=== PATIENT | male | born 1975 | race Caucasian/White ===

== ENCOUNTER 2016-10-31 08:14 | Inpatient (IN) ==
[2016-10-31 08:35] LABS: ALLEN TEST NO; BLOOD TYPE ARTERIAL; DRAW SITE R BRACHIAL; METHB 0.5 % (0.0-1.5); O2(CT) 19.6 mL/dL (15.0-23.0); PO2(98.6) 132 mmHg (60-100); SAMPLE BLOOD; SAO2 98.4 % (95.0-100.0); THB 14.8 g/dL (11.5-17.4)
[2016-10-31 08:37] LABS: pH(98.6) < 6.80 (7.35-7.45)
[2016-10-31 08:38] LABS: MODALITY RESUSC BAG; PCO2(98.6) 106 mmHg (35-45)
[2016-10-31] MEDS: LEVOPHED 8 MG in D5 1/2 NS 250 ML IV SCH ×3 (09:01→21:11)
[2016-10-31 09:11] LABS: BASO% 1.7 % (0.0-0.8); EOS# 0.27 X1000 (0.0-0.7); EOS% 2.3 % (0.0-10.0); HEMATOCRIT 48.7 % (42.0-52.0); HEMOGLOBIN 15.1 g/dL (14.0-18.0); IMM GRAN# 0.83 X1000 (0.0-0.04); IMM GRAN% 7.2 % (0.0-0.5); LYMPH# 5.53 X1000 (1.2-3.4); LYMPH% 47.9 % (20.5-51.1); MCH 29.3 PG (27-31); MCV 94.6 FL (81-99); MONO# 1.12 X1000 (0.11-0.59); MONO% 9.7 % (1.7-9.3); MPV 10.5 FL (7.4-10.4); NEUT% 31.2 % (42.2-75.2); PLT 177 X1000 (130-400); RBC 5.15 XMIL (4.7-6.1)
[2016-10-31 09:18] LABS: INR 1.1; PROTIME 11.6 Seconds (9.2-11.7)
[2016-10-31 09:19] LABS: URINE CULTURE NEEDED? NO; URINE MICRO REVIEW NEEDED? NO; URINE SOURCE CATH
[2016-10-31 09:26] LABS: ALBUMIN 3.3 g/dL (3.5-5.0); CALCIUM 8.8 mg/dL (8.8-10.2); POTASSIUM 3.8 mmol/L (3.5-5.1); TOTAL BILIRUBIN 0.21 mg/dL (0.20-1.00); TOTAL PROTEIN 6.2 g/dL (6.3-8.3)
[2016-10-31 09:28] LABS: BILIRUBIN URINE NEGATIVE (NEGATIVE); BLOOD URINE TRACE (NEGATIVE); COLOR STRAW; GLUCOSE URINE NEGATIVE (NEGATIVE); LEUKOCYTES URINE NEGATIVE (NEGATIVE); NITRITE URINE NEGATIVE (NEGATIVE); PH URINE 5.5; PROTEIN URINE NEGATIVE (NEGATIVE); SP GRAVITY URINE 1.003; TURBIDITY URINE CLEAR (CLEAR); UROBILINOGEN URINE NORMAL (NORMAL)
[2016-10-31 09:29] LABS: UR EPITHELIAL CELLS <10 /HPF (<10); URINE BACTERIA NEGATIVE /HPF; URINE RBC <10 /HPF (<10); URINE WBC <10 /HPF (<10)
[2016-10-31 09:34] LABS: UR AMPHETAMINES QUAL NONE DETECTED (NONE DETECT); UR BARBITUATES QUAL NONE DETECTED (NONE DETECT); UR BENZODIAZEPIN QUAL NONE DETECTED (NONE DETECT); UR CANNABINOIDS QUAL NONE DETECTED (NONE DETECT); UR COCAINE QUAL NONE DETECTED (NONE DETECT); UR METHADONE QUAL NONE DETECTED (NONE DETECT); UR OPIATES QUAL PRESUMPTIVE POSITIVE (NONE DETECT); UR OXYCODONE QUAL PRESUMPTIVE POSITIVE (NONE DETECT); UR PCP QUAL NONE DETECTED (NONE DETECT)
[2016-10-31] MEDS ORDERED: NS 2,000 ML ONE (09:34)
[2016-10-31] MEDS ORDERED: NS 1,000 ML IV ONE ×6 (09:45→23:09)
[2016-10-31] MEDS ORDERED: DOPAMINE 800 MG/D5W 800 MG/500 ML IV.SOLN IV SCH (09:52)
[2016-10-31] MEDS ORDERED: EPINEPHRINE SYRINGE ONE ×2 (10:06→12:30)
[2016-10-31] MEDS ORDERED: SODIUM BICARBONATE 8.4% ONE ×2 (10:06→12:30)
[2016-10-31] MEDS ORDERED: CORDARONE 150 MG/D5W ONE (10:06)
--- NOTE | 2016-10-31 10:23 | Diag Imaging Result Document ---
PROCEDURE NAME: CHEST-PORTABLE - 10/31/2016 AP PORTABLE CHEST: TIME: 0927 hours. FINDINGS: There is an endotracheal tube with its tip at the thoracic inlet. There is an apparent NG tube coiled in the upper thoracic esophagus. The inspiration is suboptimal. The heart size appears slightly larger than on 12/21/2015. IMPRESSION: NG tube coiled in the upper thoracic esophagus. The findings were called to the Emergency Room at 0930 hours.
[2016-10-31 10:29] LABS: MANUAL DIFF NEEDED? NO
--- NOTE | 2016-10-31 10:44 | EKG Report ---
Test Performed on : 10/31/2016 08:20:04 AM Test Reason : ED. Not ordered in [place] Blood Pressure : / mmHG Vent. Rate : 134 BPM Atrial Rate : 134 BPM P-R Int : 140 ms QRS Dur : 162 ms QT Int : 306 ms P-R-T Axes : 027 108 029 degrees QTc Int : 456 ms Sinus tachycardia. Right bundle branch block Abnormal ECG No previous ECGs available Unconfirmed Result
[2016-10-31 11:36] LABS: BE -10.6 mmoll (-3.0-3.0); BLOOD TYPE ARTERIAL; DRAW SITE R BRACHIAL; METHB 1.2 % (0.0-1.5); O2(CT) 23.3 mL/dL (15.0-23.0); PO2(98.6) 135 mmHg (60-100); SAMPLE BLOOD; SAO2 100.1 % (95.0-100.0); SRATE 14 BPM; THB 17.1 g/dL (11.5-17.4); TVOL 550 mL
[2016-10-31] MEDS: NEO-SYNEPHRINE 50 MG in NS 250 ML IV SCH ×6 (11:37→22:39)
[2016-10-31 11:38] LABS: MODALITY VENTILATOR; pH(98.6) 7.13 (7.35-7.45)
[2016-10-31 11:39] LABS: PCO2(98.6) 59 mmHg (35-45)
[2016-10-31] MEDS ORDERED: TYLENOL PR PRN (12:22)
[2016-10-31] MEDS ORDERED: NS 500 ML IV PRN (12:22)
[2016-10-31] MEDS ORDERED: LACRI-LUBE OPH OINT BOTH EYES SCH (12:30)
[2016-10-31] MEDS ORDERED: PEPCID IV SCH (12:30)
[2016-10-31] MEDS ORDERED: SODIUM CHLORIDE 0.9% INJ SCH ×2 (12:30→14:00)
[2016-10-31] MEDS ORDERED: SODIUM PHOSPHATE 20 MMOL in NS 250 ML IV PRN (12:30)
[2016-10-31] MEDS ORDERED: MAGNESIUM SULFATE 2 GM in STERILE WATER INJ. 50 ML IV PRN (12:30)
[2016-10-31] MEDS ORDERED: SODIUM PHOSPHATE 10 MMOL in NS 250 ML IV PRN (12:30)
[2016-10-31] MEDS ORDERED: CORDARONE ONE (12:30)
[2016-10-31] MEDS ORDERED: ATIVAN IV SCH (12:30)
[2016-10-31] MEDS ORDERED: FENTANYL IV ONE (12:30)
[2016-10-31] MEDS ORDERED: POTASSIUM CHLORIDE 60 MEQ in NS 500 ML IV PRN (12:30)
[2016-10-31] MEDS ORDERED: LOVENOX SUBQ SCH ×3 (12:30→14:00)
[2016-10-31] MEDS ORDERED: POTASSIUM CHLORIDE 40 MEQ in NS 250 ML IV PRN (12:30)
[2016-10-31] MEDS ORDERED: CORDARONE 360 MG/D5W 360 MG/200 ML IV.SOLN ONE (12:37)
--- NOTE | 2016-10-31 12:56 | PROVIDER DOCUMENTATION ---
This chart was entered by Susana Paige Scribe, acting as scribe for Carlos Clark MD. HPI-Critical Care - General Chief Complaint: Full Arrest Stated Complaint: full arrest Time Seen by Provider: 10/31/16 09:20 Patient arrived via EMS?: Yes Source: patient Allergies/Adverse Reactions: Allergies Allergy/AdvReac Type Severity Reaction Status Date / Time ketorolac tromethamine * AdvReac ABDOMINAL Verified 10/31/16 09:41 [From Toradol] PAIN Home Medications: Home Medication List Medication Instructions Recorded Confirmed Last Taken Type Acetaminophen with Codeine 1 each PO Q4H PRN PRN #10 tablet 09/21/16 Unknown Rx [Tylenol with Codeine #3] Cyclobenzaprine [Flexeril] 10 mg PO TID #20 tablet 09/21/16 Unknown Rx - History of Present Illness-Critical Care Nature of Presenting Problem: pt is a 41 yom who came to the ED via EMS unresponsive. Pt was found by his family this morning at 7:30 on the floor unresponsive, they called 911. When the EMS arrived they reported that he was warm to the touch but not breathing. Pt was given epinephrine and one liter of fluid prior to arrival. Pt has a hx of drug abuse. Location of Pain/Injury: reports: none Quality of Pain: reports: none Severity in ED: reports: severe Onset/Duration: reports: this morning Timing: reports: still present EMS Initial Findings:: unresponsive Pre-hospital Treatment: Initiated epinephrine, Not Used IV fluids Loss of Consciousness: still comatose Nitro Today/Relief: no nitro taken today Aspirin Treatment Today: no aspirin today Similar Symptoms Previously?: No - Cardiopulmonary Resuscitation Witnessed arrest?: No Noted by:: family Bystander CPR?: No Down-time before ACLS?: unknown Reason for Code Blue?: full arrest Initial Findings: unresponsive, no respirations Treatment initiated prior to doctor arrival?: Initiated CPR/thumper, Initiated IV fluids, Initiated epinephrine #mg Review of Systems - Adult - REVIEW OF SYSTEMS - ADULT ROS:: unobtainable per condition Constitutional: reports: no symptoms reported Eyes: reports: no symptoms reported Ears, Nose, Mouth & Throat: reports: no symptoms reported Cardiovascular: reports: no symptoms reported Respiratory: reports: no symptoms reported Gastrointestinal: reports: no symptoms reported Genitourinary: reports: no symptoms reported Musculoskeletal: reports: no symptoms reported Integumentary: reports: no symptoms reported Neurological: reports: no symptoms reported Psychiatric: reports: no symptoms reported Endocrine: reports: no symptoms reported Hematologic/Lymphatic: reports: no symptoms reported Allergic/Immunologic: reports: no symptoms reported All Other Systems: Reviewed and Negative Past History - Adult - PAST MEDICAL HISTORY-ADULT Review of Records: reports: Nursing Assessment Review Major Childhood Illnesses: reports: denies history Cardiovascular: reports: denies history Respiratory: reports: denies history Gastrointestinal: reports: denies history Obstetrical/Gynecological: reports: denies history Genitourinary: reports: denies history Musculoskeletal: reports: arthritis Neurological: reports: denies history Psychiatric: reports: psychiatric problems (add) Endocrine/Immune: reports: denies history Other Conditions: reports: denies history - PRIOR SURGERIES/PROCEDURES Surgical/Procedure History: reports: orthopedic (extremity) - IMMUNIZATION STATUS Childhood Immunizations: See Nurse Assessment Flu Vaccine: See Nurse Assessment - FAMILY HISTORY Family History: reviewed, not pertinent Physical Exam-General - PHYSICAL EXAM-ADULT Initial Vital Signs Reviewed: Yes - CONSTITUTIONAL General Appearance: other (unresponsive) - EYES Eyes: other (puplis fixed and dilated) - HEAD, EARS, NOSE, MOUTH & THROAT HENMT: normocephalic/atraumatic, moist mucous membranes - RESPIRATORY Respiratory: rhonchi, other (Intubated) - CARDIOVASCULAR Cardiovascular: other (distant heart sounds; 130 heart rate) - GASTROINTESTINAL (ABDOMEN) Abdominal Exam: normal bowel sounds - MUSCULOSKELETAL Back Exam: normal inspection Extremity: negative: non-tender, normal gait - SKIN Integumentary: warm/dry - NEUROLOGIC Neurologic: other (unresponsive) - PSYCHIATRIC Psych/Mental Status: other (unresponsive) Progress - PLAN OF CARE/RESULTS Progress/Plan/Lab Results: Vital Signs - 8 hr 10/31/16 09:00 10/31/16 09:27 10/31/16 09:38 Temperature 97.3 F L Pulse Rate 109 H Respiratory Rate 18 Blood Pressure 123/70 O2 Sat by Pulse Oximetry 94 L 98 10/31/16 09:50 10/31/16 10:00 10/31/16 10:15 Temperature Pulse Rate 108 H 108 H 108 H Respiratory Rate 22 14 14 Blood Pressure 125/73 127/74 119/75 O2 Sat by Pulse Oximetry 94 L 94 L 94 L 10/31/16 10:30 10/31/16 10:45 10/31/16 11:00 Temperature Pulse Rate 108 H 99 H 102 H Respiratory Rate 16 16 14 Blood Pressure 110/72 77/54 84/56 O2 Sat by Pulse Oximetry 95 96 94 L 10/31/16 11:15 10/31/16 11:30 10/31/16 11:40 Temperature Pulse Rate 127 H 116 H 110 H Respiratory Rate 14 14 14 Blood Pressure 83/67 95/65 65/54 O2 Sat by Pulse Oximetry 91 L 95 96 Laboratory Results - last 24 hr 10/31/16 10/31/16 10/31/16 08:25 08:25 08:25 WBC 11.54 H RBC 5.15 Hgb 15.1 Hct 48.7 MCV 94.6 MCH 29.3 MCHC 31.0 L RDW Std Deviation 14.8 H Plt Count 177 MPV 10.5 H Immature Gran % (Auto) 7.2 H Neut % (Auto) 31.2 L Lymph % (Auto) 47.9 [place] % (Auto) 9.7 H Eos % (Auto) 2.3 Baso % (Auto) 1.7 H Immature Gran # (Auto) 0.83 H Neut # (Auto) 3.59 Lymph # (Auto) 5.53 H [place] # (Auto) 1.12 H Eos # (Auto) 0.27 Baso # (Auto) 0.20 Segmented Neutrophils Not Reportable PT INR Specimen Type Sample Site pH pCO2 pO2 HCO3 Base Excess Oxyhemoglobin ABG O2 Sat (Calculated) ABG O2 Saturation ABG Carboxyhemoglobin ABG Methemoglobin Isacc Test A-a O2 Difference Total Hemoglobin Lactate Liter Flow Blood Gas Modality Spontaneous Rate FiO2 % Tidal Volume PEEP Sodium 144 Potassium 3.8 Chloride 100 Carbon Dioxide 16 L Anion Gap 28 BUN 10 Creatinine 1.5 H Estimated GFR/1.73 m2 51 BUN/Creatinine Ratio 7 Glucose 274 H Calculated Osmolality 296 Calcium 8.8 Total Bilirubin 0.21 AST 117 H ALT 109 H Alkaline Phosphatase 114 Creatine Kinase 99 Total Protein 6.2 L Albumin 3.3 L Globulin 2.9 Albumin/Globulin Ratio 1.1 Urine Source Urine Color Urine Turbidity Urine pH Ur Specific [place] Urine Protein Ur Glucose (Stick) Ur Ketones (Stick) Urine Blood Urine Nitrite Urine Bilirubin Urobilinogen Dipstick Urine Leukocytes Urine WBC (Auto) Urine RBC (Auto) U Epithel Cells (Auto) Urine Bacteria (Auto) Urine Opiates Screen Ur Oxycodone Screen Ur Methadone, Qual Ur Barbiturates Screen Ur Phencyclidine Scrn Ur Amphetamines Screen U Benzodiazepines Scrn Urine Cocaine Screen U Cannabinoids Screen Plasma/Serum Ethyl Alc Blood Type Antibody Screen 10/31/16 10/31/16 10/31/16 08:25 08:25 08:26 WBC RBC Hgb Hct MCV MCH MCHC RDW Std Deviation Plt Count MPV Immature Gran % (Auto) Neut % (Auto) Lymph % (Auto) [place] % (Auto) Eos % (Auto) Baso % (Auto) Immature Gran # (Auto) Neut # (Auto) Lymph # (Auto) [place] # (Auto) Eos # (Auto) Baso # (Auto) Segmented Neutrophils PT 11.6 INR 1.10 Specimen Type ARTERIAL Sample Site R BRACHIAL pH < 6.80 L* pCO2 106 H* pO2 132 H HCO3 Base Excess Oxyhemoglobin 93.2 L ABG O2 Sat (Calculated) 19.6 ABG O2 Saturation 98.4 ABG Carboxyhemoglobin 4.70 H ABG Methemoglobin 0.5 Isacc Test NO A-a O2 Difference 449.0 Total Hemoglobin 14.8 Lactate 16.70 H* Liter Flow 15.0 Blood Gas Modality RESUSC BAG Spontaneous Rate FiO2 % 100.0 Tidal Volume PEEP Sodium Potassium Chloride Carbon Dioxide Anion Gap BUN Creatinine Estimated GFR/1.73 m2 BUN/Creatinine Ratio Glucose Calculated Osmolality Calcium Total Bilirubin AST ALT Alkaline Phosphatase Creatine Kinase Total Protein Albumin Globulin Albumin/Globulin Ratio Urine Source Urine Color Urine Turbidity Urine pH Ur Specific [place] Urine Protein Ur Glucose (Stick) Ur Ketones (Stick) Urine Blood Urine Nitrite Urine Bilirubin Urobilinogen Dipstick Urine Leukocytes Urine WBC (Auto) Urine RBC (Auto) U Epithel Cells (Auto) Urine Bacteria (Auto) Urine Opiates Screen Ur Oxycodone Screen Ur Methadone, Qual Ur Barbiturates Screen Ur Phencyclidine Scrn Ur Amphetamines Screen U Benzodiazepines Scrn Urine Cocaine Screen U Cannabinoids Screen Plasma/Serum Ethyl Alc Blood Type A POSITIVE Antibody Screen NEGATIVE 10/31/16 10/31/16 10/31/16 08:30 08:30 11:25 WBC RBC Hgb Hct MCV MCH MCHC RDW Std Deviation Plt Count MPV Immature Gran % (Auto) Neut % (Auto) Lymph % (Auto) [place] % (Auto) Eos % (Auto) Baso % (Auto) Immature Gran # (Auto) Neut # (Auto) Lymph # (Auto) [place] # (Auto) Eos # (Auto) Baso # (Auto) Segmented Neutrophils PT INR Specimen Type ARTERIAL Sample Site R BRACHIAL pH 7.13 L* pCO2 59 H* pO2 135 H HCO3 16.6 L Base Excess -10.6 L Oxyhemoglobin 96.4 ABG O2 Sat (Calculated) 23.3 H ABG O2 Saturation 100.1 H ABG Carboxyhemoglobin 2.50 ABG Methemoglobin 1.2 Isacc Test A-a O2 Difference 504.0 Total Hemoglobin 17.1 Lactate 4.60 H Liter Flow Blood Gas Modality VENTILATOR Spontaneous Rate 14 FiO2 % 100.0 Tidal Volume 550 PEEP 5.0 Sodium Potassium Chloride Carbon Dioxide Anion Gap BUN Creatinine Estimated GFR/1.73 m2 BUN/Creatinine Ratio Glucose Calculated Osmolality Calcium Total Bilirubin AST ALT Alkaline Phosphatase Creatine Kinase Total Protein Albumin Globulin Albumin/Globulin Ratio Urine Source CATH Urine Color STRAW Urine Turbidity CLEAR Urine pH 5.5 Ur Specific [place] 1.003 Urine Protein NEGATIVE Ur Glucose (Stick) NEGATIVE Ur Ketones (Stick) NEGATIVE Urine Blood TRACE A Urine Nitrite NEGATIVE Urine Bilirubin NEGATIVE Urobilinogen Dipstick NORMAL Urine Leukocytes NEGATIVE Urine WBC (Auto) <10 Urine RBC (Auto) <10 U Epithel Cells (Auto) <10 Urine Bacteria (Auto) NEGATIVE Urine Opiates Screen PRESUMPTIVE POSITIVE A Ur Oxycodone Screen PRESUMPTIVE POSITIVE A Ur Methadone, Qual NONE DETECTED Ur Barbiturates Screen NONE DETECTED Ur Phencyclidine Scrn NONE DETECTED Ur Amphetamines Screen NONE DETECTED U Benzodiazepines Scrn NONE DETECTED Urine Cocaine Screen NONE DETECTED U Cannabinoids Screen NONE DETECTED Plasma/Serum Ethyl Alc Blood Type Antibody Screen Orders Category Date Time Status Nursing- MD Consult Request ROUTINE Care 10/31/16 09:53 Active Nursing- MD Consult Request ROUTINE Care 10/31/16 09:54 Active Saline Loc NOW Care 10/31/16 09:04 Active MD [Physician/Provider Consults] Routine Cons 10/31/16 09:53 Ordered MD [Physician/Provider Consults] Routine Cons 10/31/16 09:54 Ordered CHEST-PORTABLE [RAD] Stat Exams 10/31/16 09:04 Completed HEAD W/O CONTRAST [CT] Routine Exams 10/31/16 11:08 Ordered ABG [RESP] Routine Lab 10/31/16 08:26 Completed ABG [RESP] Routine Lab 10/31/16 11:25 Results ALCOHOL BLOOD Stat Lab 10/31/16 08:25 Completed CBC WITH ELECTRONIC DIFF [HEME] Stat Lab 10/31/16 08:25 Completed CK PROFILE [SP CHEM] Stat Lab 10/31/16 08:25 Completed COMPREHENSIVE METABOLIC PANEL [CHEM] Stat Lab 10/31/16 08:25 Completed PROTIME WITH INR [COAG] Stat Lab 10/31/16 08:25 Completed TYPE & SCREEN [BBK] Stat Lab 10/31/16 08:25 Completed URINALYSIS W/POSS RFLX CULT-1 [URINALYSIS] Stat Lab 10/31/16 08:30 Completed URINE DRUG SCREEN Stat Lab 10/31/16 08:30 Completed 0.9% Sodium Chloride Inj [Ns] 1,000 ml Med 10/31/16 09:34 Discontinued .ROUTE As Directed 0.9% Sodium Chloride Inj [Ns] 1,000 ml Med 10/31/16 09:45 Discontinued IV 999 mls/hr 0.9% Sodium Chloride Inj [Ns] 1,000 ml Med 10/31/16 09:52 Discontinued IV 999 mls/hr 0.9% Sodium Chloride Inj [Ns] 1,000 ml Med 10/31/16 09:52 Discontinued IV Wide Open 0.9% Sodium Chloride Inj [Ns] 250 ml Med 10/31/16 11:30 Active Phenylephrine [Moises-Synephrine] 50 mg IV As Directed Amiodarone 150 mg/D5w [Cordarone 150 mg/D5w] Med 10/31/16 10:06 Discontinued 150 mg .ROUTE .STK-MED ONE Dextrose 5%-0.45% NaCl Inj [D5 1/2 Ns] 250 ml Med 10/31/16 09:00 Active Norepinephrine [Levophed] 8 mg IV As Directed Dopamine 800 mg/D5w Med 10/31/16 09:52 Active 800 mg in 500 ml IV 22.044 mls/hr Epinephrine Syringe Med 10/31/16 10:06 Discontinued 2 mg .ROUTE .STK-MED ONE Sodium Bicarbonate 8.4% Med 10/31/16 10:06 Discontinued 100 meq .ROUTE .STK-MED ONE EKG [EKG] Stat Ther 10/31/16 08:20 Draft Transfer/Admit Order [TRANSFER] Routine Transfer 10/31/16 11:08 Ordered Result Diagrams: 10/31/16 08:25 10/31/16 08:25 Departure - Departure Time of Disposition Decision: 12:00 DIAGNOSIS: Cardiopulmonary arrest Disposition: ADMITTED INPATIENT 09 Certified Medical Emergency: Emergent Condition: Critical - Critical Care Note This patient required my direct & personal management of CC.: Yes Total Time (mins): 160 Critical Care Statement: This patient required my direct personal management to treat or rule out processes, the absence of which, could potentiallly result in sudden, clinically significant life or limb threatening deterioration. This chart was documented by the indicated scribe, (Susana Paige Scribe) and accurately reflects the services I performed and decisions made by me, Carlos Clark MD, as attested by the provider's signature.
[2016-10-31] MEDS ORDERED: NITROGLYCERIN 50 MG/D5W 50 MG/250 ML IV.SOLN IV SCH (13:00)
[2016-10-31] MEDS ORDERED: NIMBEX 80 MG in NS 160 ML IV SCH (13:00)
[2016-10-31] MEDS ORDERED: D5W IV SCH (13:00)
[2016-10-31] MEDS ORDERED: LEVOPHED IV SCH (13:00)
[2016-10-31] MEDS ORDERED: FENTANYL 1,000 MICROGM in NS 80 ML IV SCH (13:00)
[2016-10-31] MEDS ORDERED: CORDARONE 360 MG/D5W 360 MG/200 ML IV.SOLN IV ONE ×2 (13:52→16:00)
[2016-10-31] MEDS ORDERED: ZOFRAN IV PRN (13:54)
[2016-10-31] MEDS ORDERED: PROTONIX IV SCH (14:00)
[2016-10-31 14:43] LABS: ALLEN TEST YES; BE -7.7 mmoll (-3.0-3.0); BLOOD TYPE ARTERIAL; DRAW SITE R RADIAL; METHB 1.3 % (0.0-1.5); O2(CT) 25.4 mL/dL (15.0-23.0); PCO2(98.6) 41 mmHg (35-45); PO2(98.6) 196 mmHg (60-100); SAMPLE BLOOD; SRATE 22 BPM; THB 18.3 g/dL (11.5-17.4); TVOL 600 mL; pH(98.6) 7.27 (7.35-7.45)
[2016-10-31 14:44] LABS: MODALITY VENTILATOR
--- NOTE | 2016-10-31 14:44 | CONSULTATION ---
DATE OF CONSULTATION: 10/31/2016 CARDIOLOGY CONSULT NOTE: IMPRESSION: 1. Status post cardiopulmonary arrest, recurrent. Patient initially found down and had unwitnessed arrest and was not breathing at the time of discomfort. He has had recurrent episodes of cardiac arrest thereafter and is now in intensive care unit on pressors and intravenous amiodarone. 2. Polysubstance abuse with drug screen positive for opiates. RECOMMENDATIONS: 1. Supportive care. 2. Continue pressors as required. 3. Continue intravenous amiodarone. 4. Follow up echocardiography study and serial cardiac enzymes. 5. Given clinical presentation, significant anoxic encephalopathy anticipated and prognosis appears to be seriously in question. HISTORY: This 41-year-old, white male, with past history of substance abuse is now admitted to the intensive care unit for further management. After recurrent cardiac arrest. He is not known to have any medical problems. He does have history of substance abuse. He was found down at home this morning and apparently had an unwitnessed arrest. He was not breathing at the time he was discovered but was warm to touch. Resuscitative efforts were initiated. He has had recurrent ventricular arrhythmias and had defibrillation several times. He had recurrent cardiac arrest in the emergency room, and ultimately was started on intravenous amiodarone in addition to pressors. He is presently unresponsive on ventilator support and intravenous pressor support. PAST MEDICAL HISTORY: 1. No known medical problems in the past. 2. Substance abuse. MEDICATIONS: Prior to admission include Tylenol with codeine. No other known medications. SOCIAL HISTORY: He is retired from work as an associate attorney. He has a history of substance abuse. FAMILY HISTORY: Negative for premature coronary artery disease. REVIEW OF SYSTEMS: Not obtainable given patient's unresponsive state. PHYSICAL EXAMINATION: General Appearance: An overweight adult male who is unresponsive on ventilator. Vital Signs: Blood pressure 110/81, heart rate 110. HEENT Exam: Atraumatic, normocephalic. Mucous membranes moist. Neck: Supple without discernible jugular venous distention. No carotid bruits. Chest: Auscultation of chest reveals coarse breath sounds bilaterally. Cardiac Exam: Reveals a regular rate and rhythm without appreciable murmur or gallop. Abdomen: Soft, nontender. Bowel sounds are normal. Extremities: Without edema. Neurologic Exam: Reveals him to be unresponsive. DIAGNOSTIC DATA: EKG on presentation demonstrates sinus tachycardia, right bundle branch block with significantly wide QRS, consider hyperkalemia. Echocardiography preliminarily reports severely depressed left ventricular systolic function post arrest. cc: MD Efra Garcia MD
[2016-10-31 15:13] LABS: CK PROFILE 5743 U/L (24-204)
[2016-10-31] MEDS ORDERED: CORDARONE 150 MG/D5W 150 MG/100 ML IV.SOLN IV ONE (16:00)
--- NOTE | 2016-10-31 16:04 | Diag Imaging Result Document ---
PROCEDURE NAME: CHEST-PORTABLE - 10/31/2016 PORTABLE CHEST AT 1520 HOURS: FINDINGS: Compared with previous exam of same day at 0927 hours. The endotracheal tube appears stable in position with its tip located at the thoracic inlet approximately 5.5 cm above the gris. There has been interval removal of the nasogastric tube. There has been interval insertion of a right subclavian central venous catheter. The tip of the catheter is located at or near the cavoatrial junction. There is no evidence of pneumothorax. Inspiration is somewhat shallow with mild subsegmental atelectasis at the bilateral lung bases. Heart size is stable. IMPRESSION: 1. Stable position of endotracheal tube, with its tip at the thoracic inlet approximately 5.5 cm above the gris. 2. Interval removal of the nasogastric tube. 3. Tip of right subclavian central venous catheter at or near the cavoatrial junction. No evidence of pneumothorax.
--- NOTE | 2016-10-31 17:10 | ECHO REPORT ---
ORDER DATE: 10/31/2016 DESCRIPTION OF STUDY: Limited echocardiogram. Technically suboptimal study. Very poor acoustic window. Measurements could not be obtained. FINDINGS: 1. Aortic valve leaflets are trileaflet. 2. Mitral valve was normal. 3. Tricuspid valve not well visualized. 4. Pulmonic valve not well visualized. 5. Left ventricular ejection fraction estimated at 30%, however, endocardium not well visualized at all. 6. Doppler measurements across the valves could not be obtained. 7. There is no pericardial effusion. cc: MD Efra Gillespie MD
--- NOTE | 2016-10-31 17:20 | CONSULTATION ---
DATE OF CONSULTATION: 10/31/2016 REQUESTING PHYSICIAN: Efra Ramirez MD REASON FOR CONSULTATION: Cardiopulmonary arrest. HISTORY OF PRESENT ILLNESS: Mr. Romo is a 41-year-old white male with a [id number] history for tobacco, ongoing tobacco use, history of substance abuse, who was found unresponsive by the family. Amount of downtime is unknown. The patient was brought to the emergency room. He has undergone multiple courses of CPR today. He has been transported to the ICU. He is on vasopressor support. He is completely unresponsive. Echocardiogram has just been completed, which shows evidence of LV dysfunction. PAST MEDICAL HISTORY/PROBLEM LIST: 1. History of substance abuse. 2. History of tobacco use. SURGICAL HISTORY: Not known. FAMILY HISTORY: Not immediately available. REVIEW OF SYSTEMS: Cannot be obtained. PHYSICAL EXAMINATION: General: The physical exam reveals an overweight white male who appears his stated age. He does not respond to pain. He does not have spontaneous respiratory effort. Currently on vasopressor support. Vital Signs: Blood pressure 97/62, heart rate 101, respiration rate 22, oxygen saturation 100%. HEENT: Pupils are midpoint and fixed. Oropharynx is dry. Neck: Supple. Chest: Reveals coarse breath sounds bilaterally. Cardiac: Regular rate. Normal S1 and normal S2. Abdomen: Mildly distended without bowel sounds. Extremities: Cold to the touch. LABORATORIES: Creatine kinase is 5743, CPK is 577. Troponin is 13.4. Arterial blood gas on presentation, pH less than 6.8, pCO2 of 106, lactate of 16.7. Most recent arterial blood gas, pH 7.27, pCO2 of 41, PO2 of 196 with a lactate of 5.1. IMPRESSION: A 41-year-old, status post cardiopulmonary arrest, prolonged resuscitation, hypoxemic respiratory failure, evidence of myocardial ischemia with marked increase in cardiac ischemic markers, evidence of severe left ventricular dysfunction. The patient currently is completely unresponsive. It is suspected he has had a significant brain injury. RECOMMENDATIONS: 1. Continue ventilatory support at this juncture. 2. Continue blood pressure support. 3. Anticipate significant anoxic brain injury. Begin preparing family with end-of-life discussions. cc: MD Efra Schroeder MD
[2016-10-31 17:53] LABS: CK PROFILE 7138 U/L (24-204)
[2016-10-31] MEDS ORDERED: NS 500 ML ONE (18:17)
[2016-10-31 21:44] LABS: CK PROFILE 7720 U/L (24-204)
[2016-10-31] MEDS ORDERED: CORDARONE 540 MG in D5W 289.2 ML IV ONE (22:00)
[2016-10-31 22:14] LABS: CALCIUM 6.9 mg/dL (8.8-10.2); MAGNESIUM 2.4 mg/dL (1.5-2.7); POTASSIUM 3.5 mmol/L (3.5-5.1)
[2016-10-31] MEDS: DOPAMINE 800 MG/D5W 800 MG/500 ML IV.SOLN IV SCH (22:38)
[2016-10-31 22:40] LABS: HEMATOCRIT 56.7 % (42.0-52.0); HEMOGLOBIN 18.4 g/dL (14.0-18.0); MCH 29.4 PG (27-31); MCHC 32.5 g/dL (33-37); MCV 90.7 FL (81-99); MPV 10.1 FL (7.4-10.4); RBC 6.25 XMIL (4.7-6.1)
[2016-10-31] MEDS ORDERED: CALCIUM GLUCONATE 1 GM in NS 50 ML IV ONE (23:09)
[2016-11-01] MEDS ORDERED: NEO-SYNEPHRINE 100 MG in NS 500 ML IV SCH (01:00)
[2016-11-01] MEDS: LEVOPHED 8 MG in D5 1/2 NS 250 ML IV SCH ×2 (01:21→09:52)
[2016-11-01] MEDS ORDERED: SOLU-CORTEF IV ONE (02:14)
[2016-11-01] MEDS ORDERED: PITRESSIN 40 UNIT in NS 100 ML IV SCH ×2 (02:15→02:30)
[2016-11-01 03:25] VITALS: BP 72/53
[2016-11-01 04:36] LABS: ALLEN TEST YES; BE -24.3 mmoll (-3.0-3.0); BLOOD TYPE ARTERIAL; DRAW SITE R RADIAL; METHB 2.1 % (0.0-1.5); PCO2(98.6) 31 mmHg (35-45); PO2(98.6) 71 mmHg (60-100); SAMPLE BLOOD; SAO2 92.2 % (95.0-100.0); SRATE 26 BPM; THB 18.3 g/dL (11.5-17.4); TVOL 700 mL
[2016-11-01 04:38] LABS: pH(98.6) 6.96 (7.35-7.45)
[2016-11-01] MEDS: DOPAMINE 800 MG/D5W 800 MG/500 ML IV.SOLN IV SCH (04:39)
[2016-11-01 04:40] LABS: MODALITY VENTILATOR
[2016-11-01] MEDS ORDERED: SODIUM BICARBONATE 8.4% IV ONE (05:11)
[2016-11-01] MEDS ORDERED: SODIUM BICARBONATE 8.4% ONE (05:16)
--- NOTE | 2016-11-01 07:24 | PROGRESS NOTE ---
DATE: 10/31/2016 CODE NOTE: Called to see patient due to no repeated pulselessness, I want to say around 11:30. He had been on a Levophed drip. They started CPR. I do not think he was given additional medications. Pulses restored faintly around 2-3 minutes of CPR. We did end up giving him 1 dose of epinephrine just to help with his blood pressure. He then did develop sustained ventricular tachycardia with a heart rate 150-200s. He was given amiodarone and that spontaneously converted him completely, although the patient was placed on drip. At this point, he was placed on Moises-Synephrine and Levophed. Family was updated on overall poor prognosis and further neurological deterioration. cc: Efra Ramirez MD
[2016-11-01] MEDS ORDERED: EPINEPHRINE 4 MG in NS 250 ML IV SCH (08:00)
[2016-11-01] MEDS ORDERED: SODIUM BICARBONATE 8.4% IV PUSH ONE (08:02)
[2016-11-01 08:37] LABS: HEMATOCRIT 55.9 % (42.0-52.0); HEMOGLOBIN 17.6 g/dL (14.0-18.0); MCH 29.2 PG (27-31); MCHC 31.5 g/dL (33-37); MCV 92.9 FL (81-99); MPV 10.7 FL (7.4-10.4); RBC 6.02 XMIL (4.7-6.1)
--- NOTE | 2016-11-01 08:37 | OPERATIVE NOTE ---
PROCEDURE DATE: 11/01/2016 CENTRAL LINE PLACEMENT, RIGHT SUBCLAVIAN: consent obtained for IV access. CVP monitoring. The patient prepped in sterile fashion and locally anesthetized although essentially unresponsive. We are able to cannulate the subclavian vein. A triple-lumen catheter passed via modified Seldinger technique. Good venous return from all ports. Chest x-ray confirmed placement. cc: Efra Ramirez MD
[2016-11-01] MEDS ORDERED: SOLU-CORTEF 100 MG in NS 50 ML IV SCH (09:00)
[2016-11-01 09:19] LABS: CALCIUM 6.9 mg/dL (8.8-10.2); MAGNESIUM 2.3 mg/dL (1.5-2.7)
[2016-11-01] MEDS ORDERED: CORDARONE PO SCH (12:00)
[2016-11-03 06:35] LABS: ALLEN TEST NO
--- NOTE | 2016-11-03 07:33 | Diag Imaging Result Document ---
PROCEDURE NAME: CHEST-PORTABLE - 11/01/2016 PORTABLE CHEST: COMPARISON: 10/31/2016. FINDINGS: No change in the right subclavian line or in the endotracheal tube. Nasogastric tube has been placed which overlies the esophagus and stomach. The lungs are poorly expanded. The heart is not enlarged. The vessels are not distended. No pleural effusion is identified. IMPRESSION: Placement of a nasogastric tube, otherwise stable chest.
--- NOTE | 2016-11-07 02:21 | HISTORY AND PHYSICAL ---
CHIEF COMPLAINT: Unresponsiveness, cardiac arrest. HISTORY OF PRESENT ILLNESS: Briefly this is a 41-year-old gentleman who presented from outside, found unresponsive, in cardiac arrest. He was last seen awake around 6:30. Apparently, he had left his house to get breakfast, but was at a different location apparently. It is unclear exactly how long he was unresponsive. Apparently, he has issues with polysubstance abuse, and was at a location reportedly where he was getting drugs. The patient was found unresponsive in the driveway. Immediately, he was worked on by EMS, intubated, IV was established. He had been given 4 rounds of epinephrine, 1 L fluid. I think he was defibrillated. He was warm to touch though by report. In the ER, he was coded again, Dr. Clark. He was placed on a Levophed drip at that time. Pulse was restored. He was on a Levophed drip. Code lasted from 8:20 to about 9:08. I think he did developed ventricular fibrillation, but I think that was actually not during that code, it was on the outside. He was defibrillated once. While he was in the ER in the process of being admitted, he was coded a 2nd time, this time for only about 2-3 minutes. He did get 1 dose of epinephrine. He was just given CPR, Levophed, and 1 dose of epinephrine. He developed ventricular tachycardia, and was given amiodarone. He had also received a dose of amiodarone previously. Spontaneously returned to sinus tachycardia, and pulse was restored after about 2-3 minutes. I was present during that event, Dr. Guzman was as well. The patient was clinically stabilized after that, but did require pressor therapy. Patient was unresponsive when I initially evaluated him, and had been unresponsive during his course, and not received any sedation. His pupils were fixed and dilated. He had doll's eyes, oculocephalic reflex. There was no corneal reflex. There was no gag reflex. This was at baseline before the first code, and had not changed after the 2nd code. However, patient was too unstable for any imaging, such as a head CT. He was brought up to the ICU. We had discussions with the family, and pursued a modified hypothermia, with temperature round 96, and he stabilized. Initially, he was on a Moises-Synephrine drip and a Levophed drip. We attempted dopamine infusion, but he could not have a dopamine infusion because of relative tachycardia. Patient admitted for full cardiac arrest. PAST MEDICAL HISTORY: Denies any cardiac history per family. He does have polysubstance abuse issues, and has had an off-and-on abusing, especially narcotics. PAST SURGICAL HISTORY: Denies. FAMILY HISTORY: Reviewed, noncontributory. SOCIAL HISTORY: No tobacco or ethanol. ALLERGIES: Toradol. MEDICATIONS: Tylenol with codeine, and Flexeril. REVIEW OF SYSTEMS: Otherwise, negative times a 10-point review of systems. PHYSICAL EXAMINATION: VITAL SIGNS: After the 2nd code, blood pressure was 90s over 60s, heart rate in the 110s. He was afebrile. Temp 97.3 degrees. Respiratory rate 14. He was not breathing above the vent. GENERAL: A well-developed male, in no distress, but completely unresponsive. HEENT: Pupils were not reactive. ENT was intubated. NECK: Supple. CARDIOVASCULAR: Soft S1-S2. PULMONARY: Bilateral breath sounds. Clear to auscultation. GASTROINTESTINAL: Soft, nontender, nondistended. Bowel sounds were present, but diminished. EXTREMITIES: No clubbing or cyanosis. LYMPHATICS: No peripheral edema. NEUROLOGICAL: Again, he had no corneal reflex, no gag reflex, no cough reflex. Oculocephalic was positive. He did not respond to any noxious stimuli whatsoever. LABORATORY DATA: On admission, white count was 15, hemoglobin and hematocrit 18 and 56. Blood gas pH was initially 7.27. Initially, white count 11. Chemistries: Initial white count was 144, glucose 274. AST and ALT of 117 and 109, but that was again after he had been coded in the field. EKG was nonspecific, with ST changes. Chest x-ray was unremarkable. ASSESSMENT: A 41-year-old male with no medical history, presenting in full cardiac arrest, presumably secondary to drug intoxication. Urine drug screen was positive for oxycodone and opiates, which he did not have prescriptions for those medications, at least the oxycodone. He had developed ventricular tachycardia, ventricular fibrillation, arrest, after his event, hypoxic respiratory failure and shock. 1. Cardiovascular: We will monitor him on telemetry. He is on Levophed and Moises-Synephrine. We will trend enzymes, pursue echocardiogram. I have consulted Cardiology because of his ventricular arrhythmia. At this point, there is such a poor prognosis neurologically, he will not likely be amenable to any treatment, unless he survives this event or has meaningful neurological recovery, which is unlikely. 2. Pulmonary: He is being ventilated, mostly for airway protection, but hypoxia and respiratory acidosis as well. Pulmonary will be consulted. DISPOSITION: I had multiple discussions with the family about poor neurological prognosis at this point because of his young age and relative lack of health problems, although his cardiac status really at baseline is unknown, and I am suspicious he does have underlying cardiac disease with the events that have occurred. We will follow clinically. TIME SPENT: Greater than 30 minutes of critical care time for pressors, ventilator. cc: Efra Ramirez MD
--- NOTE | 2016-11-07 06:10 | DISCHARGE SUMMARY ---
ADMISSION DATE: 10/31/2016 DISCHARGE DATE: 11/01/2016 DISCHARGE DIAGNOSES: 1. Cardiac arrest. 2. Anoxic encephalopathy consistent with brain . 3. Acute coronary event likely non ST elevation LA associated with hypoxic ventilatory failure with unknown status of his coronary arteries. 4. Acute kidney injury. 5. Cardiogenic shock. 6. Respiratory failure. PROCEDURES: 1. Endotracheal intubation. This was done at outside hospital. 2. NG intubation. 3. Central line placement. CONSULTATIONS: 1. Dr. Juan Manuel Thompson MD Cardiology. 2. Dr. Jair Epperson MD Pulmonary Intensive Care. HISTORY: Briefly, see H P. This is a patient who was found down for an unknown amount of time up to an hour; 6:30 was when he was last awake and I think he was found around 7:30. He was worked on immediately by EMT who established IV access, intubated patient, gave fluids, progressed with CPR, and transferred the patient to the ER. He was defibrillated with VFib; it looks like ventricular fibrillation. He was coded for another 20-30 minutes in the ER on Levophed before pulse could be restored. However, at that point clinically he had brain . He had another cardiac arrest event which last about 2-3 minutes and that was on pressors. He got CPR and was on a Levophed drip, that drip got epinephrine. He developed ventricular tachycardia which responded to amiodarone. Patient was admitted but the family was told about poor prognosis. He did go undergo modified hypothermia protocol. He was monitored. He continued to deteriorate with low blood pressures. He was on Moises-Synephrine and Levophed. He had not tolerated dopamine but I think that was reinstituted. He was placed on vasopressin. That morning, I was called about the patient because the blood pressure continued to deteriorate. Dr. Epperson had been consulted for intensive care management and had explained poor prognosis, neurological and cardiac. Family had decided after discussion to proceed with terminal extubation. Clinically, again, patient was brain even after his first event so chances of a meaningful neurological recovery were nil. The patient was not stable enough to sustain even being able to be moved for a head CT or anything to that effect. The was determined at 10:37. Patient had passed with family at the bedside. Again, cause of I think was likely an acute coronary syndrome event non ST elevation LA which induced cardiogenic shock, however, mechanism of was likely related to drug intoxication, respiratory failure and then subsequent cardiac arrest. cc: Efra Ramirez MD
== END 2016-11-01 10:37 | disposition expired ==
LOC: ED 08:14 → ICU 11:43
PROVIDERS: ADMIT Internal Medicine; ATTEND Internal Medicine